=== PATIENT | female | born 2000 | race Hispanic/Latino ===

== ENCOUNTER 2022-03-06 08:46 | Emergency (ER) | payer OTHER, SELFPAY ==
--- NOTE | 2022-03-06 08:47 | ED.URI ---
HPI - URI/Sore Throat General Chief Complaint: Upper Respiratory Infection Stated Complaint: Sore Throat, SOB Time Seen by Provider: 03/06/22 08:56 Source: patient and RN notes reviewed Mode of arrival: ambulatory Limitations: no limitations History of Present Illness HPI Narrative: 21-year-old female presents to the [facility] with complaints of sore throat and nasal drainage since yesterday. No other signs or symptoms currently. Denies chest pain or shortness of breath. No nausea vomiting or diarrhea. No treatment prior to arrival Related Data Allergies Allergy/AdvReac Type Severity Reaction Status Date / Time No Known Allergies Allergy Unverified 03/06/22 09:09 Review of Systems Review of Systems: All systems reviewed & are unremarkable except as noted in HPI and below Constitutional: Constitutional: Reports no additional constitutional complaints, Denies chills and Denies fever(s) Eyes: Eyes: Reports no additional eye complaints ENT: Reports as per HPI, Reports nasal congestion and Reports sore throat Cardiovascular: Cardiovascular: Reports no additional cardiovascular complaints Respiratory: Respiratory: Reports no additional respiratory complaints Gastrointestinal: Gastrointestinal: Reports no additional gastrointestinal complaints Musculoskeletal: Musculoskeletal: Reports no additional musculoskeletal complaints Integumentary/Breasts: Skin/Breast: Reports system reviewed and no additional complaints, except as docu Neurologic: Reports system reviewed and no additional complaints, except as documented Psychiatric: Psychiatric: Reports no additional psychiatric complaints Allergic/Immunologic: Allergic/Immunologic: Reports no additional allergic/immunologic complaints PMFSH Comments At the time of my signature, I reviewed and agree with the nursing past medical, surgical, social, and family history. There is no relevant family history pertinent to the patient complaint. Exam Const: General: healthy appearing, no acute distress and alert Nutritional Appearance: well nourished Orientation/consciousness: patient oriented x3 Limitations: no limitations HENMT: Head: normal to inspection Ears: external ears normal, TM's normal bilaterally and EAC's normal General nose exam: Normal external nose present and Normal nares present Face and sinus: normal facial exam and sinuses nontender Mouth: Yes Normal oral and palatal mucosa present, Yes lip normal and Yes moist mucous membranes Throat: posterior oropharynx normal and uvula midline Eyes: General: appearance normal, both eyes and all related structures Conjunctivae: conjunctivae normal Pupils: Equal, round and reactive pupils present Neck: Neck: normal visual inspection, no lymphadenopathy and no meningeal signs Chest: Chest palpation & inspection: normal inspection of the chest Resp: Effort & Inspection: normal respiratory effort and no use of accessory muscles Auscultation: clear to auscultation bilaterally, no crackles, no rales, no rhonchi and no wheezes Cardio: Rate: regular rate Rhythm: regular rhythm Back/Spine/Pelvis: Cervical Spine: normal cervical lordosis Thoracic/Lumbar Spine: thoracic and lumbar spine normal to inspection Skin: General skin exam: normal color Rashes: no rashes Wounds: no wounds Neuro: General: patient oriented x3, moves all extremities, no meningeal signs and no focal motor deficits Cranial nerves: Yes Equal, round and reactive pupils present Speech: normal speech Gait exam (Neuro): Normal gait present Extrem: General: normal to inspection, full ROM and capillary refill normal Psych: Appearance: grossly normal and well kempt Mental Status: mental status grossly normal Affect: normal affect Attitude: cooperative Thought content: Yes Normal thought content present Course Course Emergency Course: Discharge instructions reviewed with patient, as well as provided in writing per nursing staff. The instructions
[2022-03-06 08:57] VITALS: BP 123/80; PULSE 84; RESP 16; TEMP 37.2; O2SAT 100
== END 2022-03-06 09:14 | disposition home or self-care (01) ==
PROVIDERS: Emergency Provider Nurse Practitioner; PCP Family Medicine
DX: J06.9 Acute upper respiratory infection, unspecified (principal)
CPT/HCPCS: 87081; 87880; 99213; G0463

== ENCOUNTER 2022-04-04 14:35 | Emergency (ER) | payer OTHER, SELFPAY ==
--- NOTE | ~2022-04-04 | XR_ITS ---
XR chest 2V INDICATION: Cough. TECHNIQUE: 2 view chest. FINDINGS: Chest pain There is mild bilateral interstitial prominence and peribronchial cuffing. There is no focal consoli dation, pleural effusion, or pneumothorax. The cardiomediastinal silhouette is normal. IMPRESSION: 1. Findings most consistent with bronchiolitis versus an atypical or viral pneumonia. Reviewed, dictated and finalized at location B. IMPRESSION: 1. Findings most consistent with bronchiolitis versus an atypical or viral pne [facility].
[2022-04-04 14:58] VITALS: BP 148/90; PULSE 71; RESP 18; TEMP 36.6; O2SAT 100
--- NOTE | 2022-04-04 15:02 | ECG_ITS ---
Measurements Intervals [place] Rate: 72 P: 33 LA: 168 QRS: 6 QRSD: 80 T: 12 QT: 365 QTc: 401 Interpretive Statements SINUS RHYTHM BASELINE ARTIFACT- I, II, AVR NORMAL ECG NO PREVIOUS ECG AVAILABLE FOR COMPARISON Electronically Signed On 04-04-2022 15:19:08 CDT by Calos Suarez D.O.
--- NOTE | 2022-04-04 15:37 | ED.GENADULT ---
HPI - General Adult General Chief complaint: Unspecified Stated complaint: I don't feel good Related Data Allergies Allergy/AdvReac Type Severity Reaction Status Date / Time No Known Allergies Allergy Unverified 03/06/22 09:09 Course Vital Signs Vital signs: Vital Signs Temperature 97.9 F 04/04/22 14:58 Pulse Rate 71 04/04/22 14:58 Respiratory Rate 18 04/04/22 14:58 Blood Pressure 148/90 H 04/04/22 14:58 Pulse Oximetry 100 04/04/22 14:58 Oxygen Delivery Room Air 04/04/22 14:58 Temperature 97.9 F 04/04/22 14:58 Pulse Rate 71 04/04/22 14:58 Respiratory Rate 18 04/04/22 14:58 Blood Pressure 148/90 H 04/04/22 14:58 Pulse Oximetry 100 04/04/22 14:58 Oxygen Delivery Room Air 04/04/22 14:58 Medical Decision Making Vital Signs Vital Signs: Vital Signs Temperature 97.9 F 04/04/22 14:58 Pulse Rate 04/04/22 14:58 Respiratory Rate 04/04/22 14:58 Blood Pressure 148/90 H 04/04/22 14:58 Pulse Oximetry 100 04/04/22 14:58 Oxygen Delivery Room Air 04/04/22 14:58 Temperature 97.9 F 04/04/22 14:58 Pulse Rate 71 04/04/22 14:58 Respiratory Rate 04/04/22 14:58 Blood Pressure 148/90 H 04/04/22 14:58 Pulse Oximetry 100 04/04/22 14:58 Oxygen Delivery Room Air 04/04/22 14:58 Discharge Plan Discharge Prescriptions: No Action fluticasone propionate [Flonase Allergy Relief] 50 mcg/actuation spray,suspension 2 spray intranasal DAILY Qty: 16 0RF Rx Instructions: administer into each nostril loratadine 10 mg tablet 10 mg PO DAILY Qty: 30 0RF Follow-up/Referrals: Gudelia Peralta MD [Primary Care Provider] -
--- NOTE | 2022-04-04 16:16 | ED.GENADULT ---
HPI - General Adult General Chief complaint: Unspecified Stated complaint: I don't feel good Time Seen by Provider: 04/04/22 15:39 History of Present Illness HPI narrative: 21-year-old female presents to the emergency room for evaluation of inspiratory chest pain that has been present for 1 week. Patient states she is also having chest tightness when she pushes on her chest. Denies any recent history of URI symptoms. Does not have any radiating pain. Patient states this happened once before, when she was diagnosed with a high cholesterol. Patient states that she does not take any medicine for dyslipidemia. Patient denies any nausea, vomiting, cough, or dizziness. Related Data Allergies Allergy/AdvReac Type Severity Reaction Status Date / Time No Known Allergies Allergy Unverified 03/06/22 09:09 Review of Systems Review of Systems: CONSTITUTIONAL: Denies fever, chills, or sweats. EYES: Denies visual changes, redness, or discharge. ENT: Denies rhinorrhea, congestion, sore throat, or otalgia. CARDIOVASCULAR: Reports chest tightness RESPIRATORY: Denies cough or dyspnea. GASTROINTESTINAL: Denies abdominal pain, nausea, vomiting, or diarrhea. GENITOURINARY: Denies dysuria or hematuria. SKIN: Denies rash or itching. MUSCULOSKELETAL: Denies back pain, joint pain, or myalgia. NEUROLOGIC: Denies headache, numbness, dizziness, or weakness. PSYCHIATRIC: Denies anxiety or depression. Exam Narrative: GENERAL: Well-appearing, well-nourished, no physical limitations, and in no acute distress. HEAD: Normocephalic, atraumatic. EYES: Conjunctivae normal, PERRLA and EOMI. CHEST: Clear to auscultation. No respiratory distress. No wheezes rales or rhonchi. Chest wall tenderness. HEART: Regular rate and rhythm. No murmur heard. Normal peripheral pulses. EXTREMITIES: Normal range of motion. No edema. No clubbing or cyanosis SKIN: Warm, dry, no rash. No noted wounds NEURO: No focal deficits. Alert and oriented x3. MAEW. CN's II-XI intact bilaterally, normal gait PSYCH: Cooperative. Normal mood and affect. Course Vital Signs Vital signs: Vital Signs Temperature 36.6 C 04/04/22 14:58 Pulse Rate 71 04/04/22 14:58 Respiratory Rate 18 04/04/22 14:58 Blood Pressure 148/90 H 04/04/22 14:58 Pulse Oximetry 100 04/04/22 14:58 Oxygen Delivery Room Air 04/04/22 14:58 Temperature 36.6 C 04/04/22 14:58 Pulse Rate 96 04/04/22 16:30 Respiratory Rate 17 04/04/22 16:30 Blood Pressure 148/90 H 04/04/22 14:58 Pulse Oximetry 100 04/04/22 14:58 Oxygen Delivery Room Air 04/04/22 14:58 Medical Decision Making Vital Signs Vital Signs: Vital Signs Temperature 36.6 C 04/04/22 14:58 Pulse Rate 71 04/04/22 14:58 Respiratory Rate 18 04/04/22 14:58 Blood Pressure 148/90 H 04/04/22 14:58 Pulse Oximetry 100 04/04/22 14:58 Oxygen Delivery Room Air 04/04/22 14:58 Temperature 36.6 C 04/04/22 14:58 Pulse Rate 96 04/04/22 16:30 Respiratory Rate 17 04/04/22 16:30 Blood Pressure 148/90 H 04/04/22 14:58 Pulse Oximetry 100 04/04/22 14:58 Oxygen Delivery Room Air 04/04/22 14:58 Lab Data Labs: Lab Results 04/04/22 04/04/22 04/04/22 Range/Units 15:58 15:58 17:06 D-Dimer 0.37 (<0.48) ug/mL Troponin I < 0.012 (0.000-0.034) ng/mL SARS-CoV-2 RNA (RT-PCR) Pending Discharge Plan Discharge Clinical Impression: Upper respiratory infection, Pleurisy Patient Disposition: Home, Self-Care Condition: Stable Instructions: Antibiotic Form, Pleurisy (ED), Viral Syndrome (ED) Prescriptions: New prednisone 20 mg tablet 60 mg PO DAILY 5 Days Qty: 15 0RF albuterol sulfate [ProAir HFA] 90 mcg/actuation HFA aerosol inhaler 1 inh inhalation QID Qty: 8.5 0RF No Action fluticasone propionate [Flonase Allergy Relief] 50 mcg/actuation spray,suspension 2 spray intranasal DAILY Qty: 16 0RF Rx Instructions: administer into each
[2022-04-04] MEDS: IPRATROPIUM BR 0.02% INH SOLN 0.5 MG/2.5 ML VIAL INHALATION (16:19)
[2022-04-04] MEDS: ALBUTEROL SULFATE NEB 2.5 MG/3 ML INH INHALATION (16:19)
[2022-04-04 16:21] VITALS: PULSE 92; RESP 17
[2022-04-04 16:28] LABS: Troponin I < 0.012 ng/mL (0.000-0.034)
[2022-04-04 16:30] VITALS: PULSE 96; RESP 17
[2022-04-04 16:32] LABS: D Dimer 0.37 ug/mL (<0.48)
[2022-04-04 17:30] VITALS: BP 123/80; PULSE 82; RESP 17; O2SAT 100
[2022-04-04 17:47] LABS: SARS-CoV-2 RNA PCR Negative
--- NOTE | 2022-04-07 19:28 | ED.GENADULT ---
HPI - General Adult General Chief complaint: Unspecified Stated complaint: I don't feel good Time Seen by Provider: 04/04/22 15:39 Related Data Allergies Allergy/AdvReac Type Severity Reaction Status Date / Time No Known Allergies Allergy Unverified 03/06/22 09:09 Course Vital Signs Vital signs: Vital Signs Temperature 97.9 F 04/04/22 14:58 Pulse Rate 71 04/04/22 14:58 Respiratory Rate 18 04/04/22 14:58 Blood Pressure 148/90 H 04/04/22 14:58 Pulse Oximetry 100 04/04/22 14:58 Oxygen Delivery Room Air 04/04/22 14:58 Temperature 97.9 F 04/04/22 14:58 Pulse Rate 82 04/04/22 17:30 Respiratory Rate 17 04/04/22 17:30 Blood Pressure 123/80 04/04/22 17:30 Pulse Oximetry 100 04/04/22 17:30 Oxygen Delivery Room Air 04/04/22 14:58 Medical Decision Making Vital Signs Vital Signs: Vital Signs Temperature 97.9 F 04/04/22 14:58 Pulse Rate 71 04/04/22 14:58 Respiratory Rate 18 04/04/22 14:58 Blood Pressure 148/90 H 04/04/22 14:58 Pulse Oximetry 100 04/04/22 14:58 Oxygen Delivery Room Air 04/04/22 14:58 Temperature 97.9 F 04/04/22 14:58 Pulse Rate 82 04/04/22 17:30 Respiratory Rate 17 04/04/22 17:30 Blood Pressure 123/80 04/04/22 17:30 Pulse Oximetry 100 04/04/22 17:30 Oxygen Delivery Room Air 04/04/22 14:58 Lab Data Labs: Lab Results 04/04/22 04/04/22 04/04/22 Range/Units 15:58 15:58 17:06 D-Dimer 0.37 (<0.48) ug/mL Troponin I < 0.012 (0.000-0.034) ng/mL SARS-CoV-2 RNA (RT-PCR) Negative Discharge Plan Discharge Clinical Impression: Upper respiratory infection, Pleurisy Patient Disposition: Home, Self-Care Condition: Stable Instructions: Antibiotic Form, Pleurisy (ED), Viral Syndrome (ED) Prescriptions: New prednisone 20 mg tablet 60 mg PO DAILY 5 Days Qty: 15 0RF albuterol sulfate [ProAir HFA] 90 mcg/actuation HFA aerosol inhaler 1 inh inhalation QID Qty: 8.5 0RF No Action fluticasone propionate [Flonase Allergy Relief] 50 mcg/actuation spray,suspension 2 spray intranasal DAILY Qty: 16 0RF Rx Instructions: administer into each nostril loratadine 10 mg tablet 10 mg PO DAILY Qty: 30 0RF Follow-up/Referrals: Gudelia Peralta MD [Primary Care Provider] - Stand Alone Forms: Work/School Release IP Time of Disposition: 17:18
== END 2022-04-04 17:31 | disposition home or self-care (01) ==
PROVIDERS: Emergency Provider Nurse Practitioner Family; PCP Family Medicine
DX: J06.9 Acute upper respiratory infection, unspecified (principal); R09.1 Pleurisy; Z20.822 Contact with and (suspected) exposure to COVID-19; E78.00 Pure hypercholesterolemia, unspecified
CPT/HCPCS: 36415; 71046; 84484; 85380; 93005; 94640; 96372; 99284; C9803; J1100; U0003; U0005

== ENCOUNTER 2022-05-16 10:18 | Emergency (ER) | payer OTHER, SELFPAY ==
[2022-05-16 10:26] VITALS: BP 130/73; PULSE 68; RESP 16; TEMP 36.9; O2SAT 100
--- NOTE | 2022-05-16 10:37 | ED.URI ---
HPI - URI/Sore Throat General Chief Complaint: Upper Respiratory Infection Stated Complaint: SOB,Chest Pain Time Seen by Provider: 05/16/22 10:42 Source: patient Mode of arrival: ambulatory Limitations: no limitations History of Present Illness HPI Narrative: 22 y/o female presented for c/o 'discomfort' to left upper chest and shoulder, to left and posterior neck, onset yesterday. Endorses she feels sob and anxious after the pain started. Denies recent injury or overuse, lifting or pushing movements. Last time she felt these symptoms was 1 hour [employer]. Rates 4/10. Pain worse with pushing on chest. Has not taken anything for pain. Left work due to symptoms. Denies numbness, tingling or weakness of upper extremities, denies cp, palpitations, sob, wheezing, nausea or vomiting. Pt did not want to go to the ER due to having a recent cardiac workup for sob and inspiratory chest pain, dx pleurisy 04/04/22. Using albuterol inhaler without relief. Related Data Allergies Allergy/AdvReac Type Severity Reaction Status Date / Time No Known Allergies Allergy Verified 05/16/22 10:24 Review of Systems Review of Systems: CONSTITUTIONAL: Denies body aches, fever, chills, or sweats. EYES: Denies visual changes, redness, or discharge. ENT: Denies rhinorrhea, congestion, sore throat, or otalgia. CARDIOVASCULAR: Denies palpitations, or edema. RESPIRATORY: Denies cough, sob, wheezing. GASTROINTESTINAL: Denies abdominal pain, nausea, vomiting, or diarrhea. SKIN: Denies rash, itching, or wounds. MUSCULOSKELETAL: Reports left chest pain NEUROLOGIC: Denies headache, numbness, tingling, or weakness. All systems reviewed & are unremarkable except as noted in HPI and below PMFSH Comments At time of signature, I have reviewed and agree with nursing past medical, surgical, social and family history unless otherwise noted. Please see nursing chart for further information. There is no relevant family history pertinent to the presenting complaint Exam Narrative: GENERAL: Well-appearing, in no acute distress. EYES: EOMI. No redness or drainage. Conjunctivae normal. ENT: Mucous membranes pink and moist. No rhinorrhea. TMs normal bilaterally. Throat normal. Uvula midline. NECK: Normal AROM. Supple. No vpt. CHEST: Left anterior chest wall tenderness with palpation. No respiratory distress. LCTAB HEART: Regular rate and rhythm. No murmur appreciated. ABDOMEN: Soft, nontender, nondistended, normal active bowel sounds. EXTREMITIES: Normal range of motion. Normal peripheral pulses. SKIN: Warm, dry, no rash. Capillary refill normal. Normal skin turgor. NEURO: Alert and oriented x3. Gait steady. PSYCH: Normal affect. Course Course Emergency Course: Patient is aware of diagnosis, understands and agrees to treatment plan. Anticipatory guidance given. Patient agrees to follow-up as directed and is aware of reasons to seek care at the emergency department. Portions of this record may have been created with voice recognition software Level of Care: Express Care Visit Vital Signs Vital signs: Vital Signs Temperature 98.4 F 05/16/22 10:26 Pulse Rate 68 05/16/22 10:26 Respiratory Rate 16 05/16/22 10:26 Blood Pressure 130/73 05/16/22 10:26 Pulse Oximetry 100 05/16/22 10:26 Oxygen Delivery Room Air 05/16/22 10:26 Temperature 98.4 F 05/16/22 10:26 Pulse Rate 68 05/16/22 10:26 Respiratory Rate 16 05/16/22 10:26 Blood Pressure 130/73 05/16/22 10:26 Pulse Oximetry 100 05/16/22 10:26 Oxygen Delivery Room Air 05/16/22 10:26 MDM - URI/Sore Throat MDM Narrative Medical decision making narrative: Patient with left chest wall tenderness with palpation, otherwise unremarkable PE. Recent CXR 04/04/22 showed bronchiolitis vs an atypical or viral pneumonia. She has taken steroids as directed. Using albuterol without significant relief in these symptoms. Advised supportive measures for MS pain and signs/symptoms to
== END 2022-05-16 11:04 | disposition home or self-care (01) ==
PROVIDERS: Emergency Provider Nurse Practitioner Family; PCP Family Medicine
DX: R07.89 Other chest pain (principal)
CPT/HCPCS: 99213; G0463